=== PATIENT | female | born 1995 | race Two or more races ===

== ENCOUNTER 2024-08-08 01:45 | Inpatient (IN) | payer MEDICAID, SELFPAY ==
[2024-08-08] VITALS (26 sets, daily range): BP systolic 81–165; BP diastolic 52–93; PULSE 66–114; RESP 14–18; TEMP 36.4–37.7; O2SAT 95–107; BMI 33.7
[2024-08-08] MEDS: RINGERS LACTATED 1000 ML 1,000 ML 100 ML IV (02:05)
[2024-08-08] MEDS: ceFAZolin/D5W 2 GM IV 2 GM/100 ML BAG IV (02:16)
[2024-08-08 02:17] LABS: Basophils % (Auto) 0 % (0-2.5); Eosinophils % (Auto) 0 % (0-10); Hematocrit 37.1 % (36.0-46.0); Hemoglobin 12.3 g/dL (12.0-16.0); Immature Granulocytes % (Auto) 0 % (0-0); Immature Granulocytes Auto 0.04 Thou/mm3 (0.00-0.00); Lymphocytes # (Auto) 3.1 Thou/mm3 (1.0-4.8); Lymphocytes % (Auto) 31 % (10-50); Mean Corpuscular HGB Conc 33.2 g/dl (31.0-37.0); Mean Corpuscular Hemoglobin 24.8 pg (25.0-35.0); Mean Corpuscular Volume 75 fL (80-100); Monocytes # (Auto) 0.6 Thou/mm3 (0.0-0.8); Monocytes % (Auto) 6 % (0-12); Neutrophils # (Auto) 6.3 Thou/mm3 (1.8-7.7); Neutrophils % (Auto) 62 % (37-80); Nucleated Red Blood Cell % 0 /100 WBC (0); Platelet Count 244 Thou/mm3 (140-440); RDW Standard Deviation 42.4 fL (36.4-46.3); Red Blood Count 4.96 Miln/mm3 (4.00-5.20); White Blood Count 10.2 Thou/mm3 (3.6-11.0)
[2024-08-08 02:33] LABS: Fibrinogen 478 mg/dL (175-375)
--- NOTE | 2024-08-08 02:35 | XR_ITS ---
Examination: Abdomen AP single view Technique: AP portable supine abdomen, single view Exam date and time: August 08, 2024 at 0239 hrs. Indications:: Instrument miscount Findings: Linear foreign body projects over the right pelvic rami Nonobstructive bowel gas pattern The osseous structures are intact Impression: Positive for curvilinear foreign body Please see the teleradiology report at 0612 ET
[2024-08-08 02:36] LABS: Alanine Aminotransferase 12 U/L (10-49); Albumin, Serum 4.3 gm/dL (3.5-5.0); Albumin/Globulin Ratio 1.5 (1.2-2.2); Alkaline Phosphatase 189 U/L (46-116); Anion Gap 16 (7-16); Aspartate Amino Transferase 12 U/L (0-34); BUN/Creatinine Ratio 22 Ratio (12-20); Bilirubin,Total 0.5 mg/dL (0.3-1.2); Blood Urea Nitrogen 11 mg/dL (9-23); Calcium 9.6 mg/dL (8.3-10.6); Calcium (Corrected) 9.6 mg/dL (8.5-10.1); Carbon Dioxide 15.9 mMol/L (20.0-31.0); Chloride 104 mMol/L (98-107); Creatinine (Component) 0.5 mg/dL (0.6-1.3); Estimated Creatinine Clearance 184.4 mL/min (>60); Globulin 2.8 gm/dL (2.3-3.5); Glucose 97 mg/dL (74-106); Osmolality,Calculated 271 (275-295); Potassium 3.3 mMol/L (3.4-5.1); Sodium 136 mMol/L (136-145); Total Protein 7.1 gm/dL (5.7-8.2); Uric Acid 5.1 mg/dL (3.1-7.8); eGFR > 60 See Note
[2024-08-08 02:51] LABS: Hepatitis B Surface Antigen Non Reactive (Non React); Rubella, IgG Antibody Reactive (Immune)
[2024-08-08 02:55] LABS: Syphilis Nonreactive (Nonreactive)
--- NOTE | 2024-08-08 03:44 | PD.LDHP ---
Documentation for date of: 08/08/24 OB Labor/Induct. HPI History of Present Illness : 4 Term pregnancies: 3 History of sections: Yes (2013) History of present illness: Patient is a 28-year-old with a last menstrual period of mid November and a due date according to the patient of August 08, 2024. She has been followed in [facility]. She is up previous x 1 with 3 successful 's. She presents to this facility in active labor at 8 cm expecting a . Even though she was advanced dilation the hospital policy is to deny VBACs.. Labor began patient states that labor began approximately 12:30 in the afternoon the informed of this and consent was obtained for repeat section . ROS noncontributory past medical history noncontributory review of systems noncontributory Surgical history at first delivery with 3 successful 's following. weight of children ranged between 7 pounds 2 to 7 pounds 3 ounces History of Lasix surgery potassium low at 3.3 chloride 104 sodium 136 CO2 15.9 ificant laboratory H&H 12.3 37.1 uric acid 5.1 Urine 3+ blood O+ blood antibody screen negative Rubella immune physical exam HEENT PERRLA EOM intact he lungs clear art regular rate and rhythm f cervix dilated to 8 cm 0 sta 90% effacement fundal height 36 cm n quadriceps euro cranial nerves II through XII grossly intact +2 symmetrical biceps quadriceps. Peripheral pulses symmetrical trace pretibial edema Labs Labs: Positive: Rubella Titre, Negative: Hepatitis B and Unknown: RPR and Group Beta Strep Past Medical History Surgical History SURGICAL: Positive Section (2013) Meds Home Medications and Allergies Allergies Allergy/AdvReac Type Severity Reaction Status Date / Time No Known Allergies Allergy Verified 04/28/23 21:32 OB Exam Physical Exam Vital signs: Pulse BP 93 165/93 H 08/08/24 01:56 08/08/24 01:56 OB Results Labs 08/08/24 02:00 08/08/24 02:00 Labs: Short CBC 08/08/24 Range/Units 02:00 WBC 10.2 (3.6-11.0) Thou/mm3 Hgb 12.3 (12.0-16.0) g/dL Hct 37.1 (36.0-46.0) % Plt Count 244 (140-440) Thou/mm3 BMP 08/08/24 02:00 Sodium 136 Potassium 3.3 L Chloride 104 Carbon Dioxide 15.9 L BUN 11 Creatinine 0.5 L Glucose 97 Calcium 9.6 Liver Function 08/08/24 Range/Units 02:00 Total Bilirubin 0.5 (0.3-1.2) mg/dL AST 12 (0-34) U/L ALT 12 (10-49) U/L Alkaline Phosphatase 189 H (46-116) U/L Albumin 4.3 (3.5-5.0) gm/dL OB Assessment & Plan Additional Plan Additional Plan Comment: Repeat low-transverse section as hospital does not perform 's
--- NOTE | 2024-08-08 03:57 | ESOP_ITS ---
Operative Note - BURRER MACHINE Procedure Date of procedure: 08/08/24 Procedure Performed: Repeat low-transverse section Indication: Prior section in labor Pre-Op diagnosis: Prior section in labor Procedure description: General anesthesia Findings: 300 cc estimated blood loss Narrative: Male grams score 8/9 weight 3335 Diagnosis Problem List Completed Was Problem List Reviewed/Reconciled?: Yes
--- NOTE | 2024-08-08 03:59 | PD.EVENT ---
Documentation for date of: 08/08/24 Event Note Event Note: Because of the patient's rapid progression and previous section it was decided by anesthesia to perform a general anesthesia. The patient a sharp scalpel was used to incise through the skin and the subcutaneous tissue. Once the subcutaneous tissue had been opened electrocauterization was employed to continue the incision to the fascial layer. The fascia was opened briefly midline and carried laterally in both directions by Call scissors .was prepped and draped in usual fashion and following this a low transverse incision was placed under the previous scar at the level of the symphysis pubis. The fascia was densely adherent with multiple dense scar tissue making it difficult to open up .Call scissors were employed to assist in the dissection of upper dissection of the underlying rectus muscle. A bladder flap was developed by Metzenbaum scissors and pushed off the lower uterine segment. A sharp scalpel was used to open up the uterus followed by blunt finger dissection laterally in both directions. A hand was placed in the lower aspect of the uterus and fundal pressure applied. The vertex was. unable to be easily delivered at which time a vacuum was placed. Difficulty in the use of the vacuum began w pressure was unable to be obtained. A instructions were given for the application of suction including how to maintain pressure in the green zone a successful vacuum extraction occurred. a living male infant with of 8 9 weight 3335 grams. Cord blood was obtained uterus exteriorized Uterus wiped free of clots and debris An extension towards the cervix was seen which was closed with 0 Vicryl 2 layers 9of o vicryl , seconding imbricating the first was used. A needle hole a correct sponge needle and instrument count was noticed near the right mesosalpinx near the tube. This required 4-0 Vicryl to be used in [id number] fashion to obtain hemostasis. A small ooze was noted in the right corner of the uterus and a mhyixq-dn-afjog of 0 Vicryl was used to secure this location. Surgicel powder was placed also. A correct sponge and needle and instrument count was attempted but could not be verified as no preoperative count was obtained due to the emergent nature of the surgery. A flatplate of the abdomen was obtained and digitally visualized in the OR prior to closure no needle instruments or sponges were seen though the pending teleradiology is not yet available. Because of the difficulty in delivering the a small malar incision and the rectus muscle was placed at the time of delivery and this was repaired with 2 interrupted 0 Vicryl sutures. The fascia was closed by continuous suture of 0 Vicryl Subcutaneous tissue reapproximated by 3-0 plain Subcuticular stitch of 4-0 Monocryl was used to close the incision Estimated blood loss 300 cc
[2024-08-08] MEDS: OXYTOCIN in NS 20 units 20 UNIT/1,000 ML BAG 125 UNIT IV (04:53)
[2024-08-08 05:22] LABS: HIV (1&2) Antibody Rapid Non-Reactive
[2024-08-08 06:03] LABS: Anion Gap 10 (7-16); BUN/Creatinine Ratio 22 Ratio (12-20); Blood Urea Nitrogen 11 mg/dL (9-23); Calcium 8.5 mg/dL (8.3-10.6); Carbon Dioxide 22.4 mMol/L (20.0-31.0); Chloride 105 mMol/L (98-107); Creatinine (Component) 0.5 mg/dL (0.6-1.3); Estimated Creatinine Clearance 184.4 mL/min (>60); Glucose 108 mg/dL (74-106); Osmolality,Calculated 274 (275-295); Sodium 137 mMol/L (136-145); eGFR > 60 See Note
[2024-08-08 06:15] LABS: Syphilis Nonreactive (Nonreactive)
[2024-08-08] MEDS: KETOROLAC INJ 30 MG/ML VIAL IVP ×2 (07:15→14:37)
--- NOTE | 2024-08-08 09:17 | PD.LDPPPRG ---
Subjective Subjective Interval history: nearly 6 hpours post up. Comfortable in bes Exam Vital Signs Temp Pulse Resp BP Pulse Ox O2 Del Method 97.9 F 84 18 119/60 98 Room Air 08/08/24 06:00 08/08/24 06:00 08/08/24 06:00 08/08/24 06:00 08/08/24 06:00 08/08/24 06:00 Routine Respiratory Exam Comments: lungs clear Routine Cardiovascular Exam Comments: rrr Routine Abdominal Exam Comments: U/2 firm Objective Labs 08/08/24 02:00 08/08/24 04:55 Labs: Laboratory Results - last 24 hr 08/08/24 08/08/24 08/08/24 02:00 02:00 04:55 WBC 10.2 RBC 4.96 Hgb 12.3 Hct 37.1 MCV 75 L MCH 24.8 L MCHC 33.2 RDW Std Deviation 42.4 Plt Count 244 Neut % (Auto) 62 Lymph % (Auto) 31 [place] % (Auto) 6 Eos % (Auto) 0 Baso % (Auto) 0 Neut # (Auto) 6.3 Lymph # (Auto) 3.1 [place] # (Auto) 0.6 Eos # (Auto) 0.0 Baso # (Auto) 0.0 Immature Gran # (Auto) 0.04 H Absolute Nucleated RBC 0.00 Immature Gran % 0 Nucleated RBC % 0 Fibrinogen 478 H Sodium 136 137 Potassium 3.3 L 4.0 D Chloride 104 105 Carbon Dioxide 15.9 L 22.4 Anion Gap 16 10 BUN 11 11 Creatinine 0.5 L 0.5 L Estim Creat Clear Calc 184.4 184.4 eGFR > 60 > 60 BUN/Creatinine Ratio 22 H 22 H Glucose 97 108 H Calculated Osmolality 271 L 274 L Uric Acid 5.1 Calcium 9.6 8.5 Corrected Calcium 9.6 Total Bilirubin 0.5 AST 12 ALT 12 Alkaline Phosphatase 189 H Total Protein 7.1 Albumin 4.3 Globulin 2.8 Albumin/Globulin Ratio 1.5 Syphilis Serology Nonreactive Nonreactive Hep Bs Antigen Non Reactive HIV 1&2 Antibody Rapid Non-Reactive Rubella IgG Antibody Reactive (Immune) Blood Type O Positive Antibody Screen NEGATIVE Blood Bank Wristband ID Yes Assessment & Plan Plan Comment Plan Comment: continue pp management Time Spent With Patient Time: Total time spent is greater than 50% in coordination of care (as documented) at patient's floor/unit and/or counseling patient:
[2024-08-08 10:49] LABS: Amphetamine/Metham Scrn,Ur OB Negative (Negative); Benzoylecgonine Screen, Ur OB Negative (Negative); Opiate Screen,Urine OB Positive (Negative); THC Screen,Urine OB Negative (Negative)
[2024-08-08 10:50] LABS: Opiates U Confirm* See Sep Rpt
--- NOTE | 2024-08-08 16:13 | ESPR_ITS ---
Subjective Subjective Interval history: By nursing staff of the patient having a sudden loss of consciousness while removing the Jaffe catheter. Patient describes the onset as sudden with no warning. Patient denies any pain. Patient denies any vaginal bleeding. Patient states she does have gas and gas pains also radiating up to the right shoulder at times and this may have been occurring at the time of the fainting spell Exam Vital Signs Temp Pulse Resp BP Pulse Ox O2 Del Method 98.8 F 95 16 96/60 98 Room Air 08/08/24 11:40 08/08/24 11:40 08/08/24 11:40 08/08/24 11:40 08/08/24 11:40 08/08/24 11:40 Narrative Exam Upon proceeding to the patient's bedside and examination of the patient revealed the following. The patient was alert and in no acute distress. The abdomen was soft nontender though the patient did indicate minimal tenderness in the inguinal areas. There are active bowel sounds. The heart had regular rate and rhythm. The lungs were clear reflexes were normal. Blood pressure at the time of the incident was according to the nursing staff 84/52 and upon laying down it was 109/71 respirations were 15 pulse was 92. There was no rebound tenderness in the patient's abdomen which remained soft throughout the examination. Objective Labs 08/08/24 02:00 08/08/24 04:55 Labs: Laboratory Results - last 24 hr 08/08/24 08/08/24 08/08/24 02:00 02:00 04:55 WBC 10.2 RBC 4.96 Hgb 12.3 Hct 37.1 MCV 75 L MCH 24.8 L MCHC 33.2 RDW Std Deviation 42.4 Plt Count 244 Neut % (Auto) 62 Lymph % (Auto) 31 [place] % (Auto) 6 Eos % (Auto) 0 Baso % (Auto) 0 Neut # (Auto) 6.3 Lymph # (Auto) 3.1 [place] # (Auto) 0.6 Eos # (Auto) 0.0 Baso # (Auto) 0.0 Immature Gran # (Auto) 0.04 H Absolute Nucleated RBC 0.00 Immature Gran % 0 Nucleated RBC % 0 Fibrinogen 478 H Sodium 136 137 Potassium 3.3 L 4.0 D Chloride 104 105 Carbon Dioxide 15.9 L 22.4 Anion Gap 16 10 BUN 11 11 Creatinine 0.5 L 0.5 L Estim Creat Clear Calc 184.4 184.4 eGFR > 60 > 60 BUN/Creatinine Ratio 22 H 22 H Glucose 97 108 H Calculated Osmolality 271 L 274 L Uric Acid 5.1 Calcium 9.6 8.5 Corrected Calcium 9.6 Total Bilirubin 0.5 AST 12 ALT 12 Alkaline Phosphatase 189 H Total Protein 7.1 Albumin 4.3 Globulin 2.8 Albumin/Globulin Ratio 1.5 Urine Opiates Screen U Amphetamin/Meth Scrn U Cocaine Metab Screen U Marijuana (THC) Screen Syphilis Serology Nonreactive Nonreactive Hep Bs Antigen Non Reactive HIV 1&2 Antibody Rapid Non-Reactive Rubella IgG Antibody Reactive (Immune) Blood Type O Positive Antibody Screen NEGATIVE Blood Bank Wristband ID Yes 08/08/24 09:54 WBC RBC Hgb Hct MCV MCH MCHC RDW Std Deviation Plt Count Neut % (Auto) Lymph % (Auto) [place] % (Auto) Eos % (Auto) Baso % (Auto) Neut # (Auto) Lymph # (Auto) [place] # (Auto) Eos # (Auto) Baso # (Auto) Immature Gran # (Auto) Absolute Nucleated RBC Immature Gran % Nucleated RBC % Fibrinogen Sodium Potassium Chloride Carbon Dioxide Anion Gap BUN Creatinine Estim Creat Clear Calc eGFR BUN/Creatinine Ratio Glucose Calculated Osmolality Uric Acid Calcium Corrected Calcium Total Bilirubin AST ALT Alkaline Phosphatase Total Protein Albumin Globulin Albumin/Globulin Ratio Urine Opiates Screen Positive A U Amphetamin/Meth Scrn Negative U Cocaine Metab Screen Negative U Marijuana (THC) Screen Negative Syphilis Serology Hep Bs Antigen HIV 1&2 Antibody Rapid Rubella IgG Antibody Blood Type Antibody Screen Blood Bank Wristband ID Impressions Impression: Pending to the laboratory which was ordered at the time of the incident including a stat CBC a CHEM 20 and evaluation of electrolytes this is believed to both likely be a vessel vagal response upon the patient. Once additional laboratories are obtained patient will be again evaluated for orthostatic blood pressure changes Assessment & Plan Time Spent With Patient Time: Total time spent is greater than 50% in coordination of care (as documented) at patient's floor/unit and/or counseling patient:
[2024-08-08 16:17] LABS: Basophils % (Auto) 0 % (0-2.5); Eosinophils % (Auto) 0 % (0-10); Hematocrit 21.4 % (36.0-46.0); Immature Granulocytes % (Auto) 0 % (0-0); Immature Granulocytes Auto 0.03 Thou/mm3 (0.00-0.00); Lymphocytes % (Auto) 7 % (10-50); Mean Corpuscular HGB Conc 33.2 g/dl (31.0-37.0); Mean Corpuscular Hemoglobin 25.3 pg (25.0-35.0); Mean Corpuscular Volume 76 fL (80-100); Monocytes # (Auto) 1.4 Thou/mm3 (0.0-0.8); Monocytes % (Auto) 11 % (0-12); Neutrophils # (Auto) 10.7 Thou/mm3 (1.8-7.7); Neutrophils % (Auto) 82 % (37-80); Nucleated Red Blood Cell % 0 /100 WBC (0); Platelet Count 224 Thou/mm3 (140-440); RDW Standard Deviation 43.8 fL (36.4-46.3); Red Blood Count 2.81 Miln/mm3 (4.00-5.20); White Blood Count 13.1 Thou/mm3 (3.6-11.0)
[2024-08-08 16:22] LABS: Hemoglobin 7.1 g/dL (12.0-16.0)
[2024-08-08 16:39] LABS: Alanine Aminotransferase 12 U/L (10-49); Albumin, Serum 3.4 gm/dL (3.5-5.0); Albumin/Globulin Ratio 1.7 (1.2-2.2); Alkaline Phosphatase 125 U/L (46-116); Anion Gap 12 (7-16); Aspartate Amino Transferase 25 U/L (0-34); BUN/Creatinine Ratio 22 Ratio (12-20); Bilirubin,Total 0.5 mg/dL (0.3-1.2); Blood Urea Nitrogen 13 mg/dL (9-23); Calcium 8.5 mg/dL (8.3-10.6); Carbon Dioxide 19.6 mMol/L (20.0-31.0); Chloride 106 mMol/L (98-107); Creatinine (Component) 0.6 mg/dL (0.6-1.3); Estimated Creatinine Clearance 153.7 mL/min (>60); Glucose 111 mg/dL (74-106); Osmolality,Calculated 276 (275-295); Potassium 4.2 mMol/L (3.4-5.1); Sodium 138 mMol/L (136-145); Total Protein 5.4 gm/dL (5.7-8.2); eGFR > 60 See Note
--- NOTE | 2024-08-08 20:14 | ESPR_ITS ---
Subjective Subjective Interval history: Nursing reported patient felt dizzy with sitting. Feeling flushes. Will transfuse one unit. Will decide second unit depending on patient symptoms Wiull repeat H/H 6 hours after first unit in. Exam Vital Signs Temp Pulse Resp BP Pulse Ox O2 Del Method 99.1 F 114 H 16 131/85 H 100 Room Air 08/08/24 20:03 08/08/24 20:03 08/08/24 20:03 08/08/24 20:03 08/08/24 20:03 08/08/24 16:13 Objective Labs 08/08/24 16:03 08/08/24 16:03 Labs: Laboratory Results - last 24 hr 08/08/24 08/08/24 08/08/24 02:00 02:00 04:55 WBC 10.2 RBC 4.96 Hgb 12.3 Hct 37.1 MCV 75 L MCH 24.8 L MCHC 33.2 RDW Std Deviation 42.4 Plt Count 244 Neut % (Auto) 62 Lymph % (Auto) 31 [place] % (Auto) 6 Eos % (Auto) 0 Baso % (Auto) 0 Neut # (Auto) 6.3 Lymph # (Auto) 3.1 [place] # (Auto) 0.6 Eos # (Auto) 0.0 Baso # (Auto) 0.0 Immature Gran # (Auto) 0.04 H Absolute Nucleated RBC 0.00 Immature Gran % 0 Nucleated RBC % 0 Fibrinogen 478 H Sodium 136 137 Potassium 3.3 L 4.0 D Chloride 104 105 Carbon Dioxide 15.9 L 22.4 Anion Gap 16 10 BUN 11 11 Creatinine 0.5 L 0.5 L Estim Creat Clear Calc 184.4 184.4 eGFR > 60 > 60 BUN/Creatinine Ratio 22 H 22 H Glucose 97 108 H Calculated Osmolality 271 L 274 L Uric Acid 5.1 Calcium 9.6 8.5 Corrected Calcium 9.6 Total Bilirubin 0.5 AST 12 ALT 12 Alkaline Phosphatase 189 H Total Protein 7.1 Albumin 4.3 Globulin 2.8 Albumin/Globulin Ratio 1.5 Urine Opiates Screen U Amphetamin/Meth Scrn U Cocaine Metab Screen U Marijuana (THC) Screen Syphilis Serology Nonreactive Nonreactive Hep Bs Antigen Non Reactive HIV 1&2 Antibody Rapid Non-Reactive Rubella IgG Antibody Reactive (Immune) Blood Type O Positive Antibody Screen NEGATIVE Crossmatch See Detail Blood Bank Wristband ID Yes 08/08/24 08/08/24 09:54 16:03 WBC 13.1 H RBC 2.81 L Hgb 7.1 L D Hct 21.4 L* D MCV 76 L MCH 25.3 MCHC 33.2 RDW Std Deviation 43.8 Plt Count 224 Neut % (Auto) 82 H Lymph % (Auto) 7 L [place] % (Auto) 11 Eos % (Auto) 0 Baso % (Auto) 0 Neut # (Auto) 10.7 H Lymph # (Auto) 1.0 [place] # (Auto) 1.4 H Eos # (Auto) 0.0 Baso # (Auto) 0.0 Immature Gran # (Auto) 0.03 H Absolute Nucleated RBC 0.00 Immature Gran % 0 Nucleated RBC % 0 Fibrinogen Sodium 138 Potassium 4.2 Chloride 106 Carbon Dioxide 19.6 L Anion Gap 12 BUN 13 Creatinine 0.6 Estim Creat Clear Calc 153.7 eGFR > 60 BUN/Creatinine Ratio 22 H Glucose 111 H Calculated Osmolality 276 Uric Acid Calcium 8.5 Corrected Calcium 9.0 Total Bilirubin 0.5 AST 25 ALT 12 Alkaline Phosphatase 125 H D Total Protein 5.4 L Albumin 3.4 L D Globulin 2.0 L Albumin/Globulin Ratio 1.7 Urine Opiates Screen Positive A U Amphetamin/Meth Scrn Negative U Cocaine Metab Screen Negative U Marijuana (THC) Screen Negative Syphilis Serology Hep Bs Antigen HIV 1&2 Antibody Rapid Rubella IgG Antibody Blood Type Antibody Screen Crossmatch Blood Bank Wristband ID Assessment & Plan Time Spent With Patient Time: Total time spent is greater than 50% in coordination of care (as documented) at patient's floor/unit and/or counseling patient:
--- NOTE | 2024-08-08 22:17 | PC.NURSE ---
Blood transfusion complete. VS stable, no complaints of any pain or discomfort, no signs of distress.
--- NOTE | 2024-08-08 22:35 | PC.NURSE ---
Assisted patient to the toilet, urinated with an output of 280 ml.
[2024-08-09] VITALS (9 sets, daily range): BP systolic 125–159; BP diastolic 77–97; PULSE 64–108; RESP 16–20; TEMP 36.7–37.1; O2SAT 98–99
[2024-08-09 02:49] LABS: Basophils % (Auto) 0 % (0-2.5); Eosinophils % (Auto) 0 % (0-10); Hematocrit 23.5 % (36.0-46.0); Immature Granulocytes % (Auto) 0 % (0-0); Immature Granulocytes Auto 0.03 Thou/mm3 (0.00-0.00); Lymphocytes # (Auto) 1.2 Thou/mm3 (1.0-4.8); Lymphocytes % (Auto) 11 % (10-50); Mean Corpuscular HGB Conc 32.8 g/dl (31.0-37.0); Mean Corpuscular Hemoglobin 25.6 pg (25.0-35.0); Mean Corpuscular Volume 78 fL (80-100); Monocytes # (Auto) 0.9 Thou/mm3 (0.0-0.8); Monocytes % (Auto) 9 % (0-12); Neutrophils # (Auto) 8.4 Thou/mm3 (1.8-7.7); Neutrophils % (Auto) 80 % (37-80); Nucleated Red Blood Cell % 0 /100 WBC (0); Platelet Count 208 Thou/mm3 (140-440); RDW Standard Deviation 44.6 fL (36.4-46.3); Red Blood Count 3.01 Miln/mm3 (4.00-5.20); White Blood Count 10.5 Thou/mm3 (3.6-11.0)
[2024-08-09 02:53] LABS: Hemoglobin 7.7 g/dL (12.0-16.0)
[2024-08-09] MEDS: ACETAMINOPHEN 325 MG TABLET 650 MG PO ×2 (04:01→13:07)
[2024-08-09] MEDS: SIMETHICONE 80 MG CHEW PO ×2 (04:57→13:07)
--- NOTE | 2024-08-09 08:19 | PD.LDPPPRG ---
Subjective Subjective Interval history: Patient is postop day #1 repeat in labor. Patient delivered to 08/08/24 at 2:00 in the morning so she is about 32 hours after her . Her predelivery hemoglobin was 12 it dropped to 7.1 and she got 1 unit of blood and today her hemoglobin is 7.7 the plan is to transfuse 1 more unit. Patient is doing well she does feel abdominal distention and is barely passing flatus. She did tolerate a general diet for breakfast. She denies heavy vaginal bleeding or shortness of breath or lightheadedness. The father the baby is at bedside. Exam Vital Signs Temp Pulse Resp BP Pulse Ox O2 Del Method 98.4 F 106 H 16 132/92 H 98 Room Air 08/09/24 03:54 08/09/24 03:54 08/09/24 03:54 08/09/24 03:54 08/09/24 03:54 08/09/24 03:54 Narrative Exam Patient is alert cooperative resting comfortably in bed Constitutional Constitutional: no acute distress Routine Abdominal Exam Abdominal: Present soft, distended and surgical scars (Her dressing is clean dry and intact. It will be removed later today.) Comments: Abdomen is distended and tympanitic. Difficult to feel fundus. Routine Extremities Exam Extremities: Present full ROM Routine Skin Exam Skin: Present intact, dry and warm Routine Psychiatric Exam Psychiatric: Present normal affect and normal thought process Objective Labs 08/09/24 02:00 08/08/24 16:03 Labs: Laboratory Results - last 24 hr 08/08/24 08/08/24 08/08/24 02:00 09:54 16:03 WBC 13.1 H RBC 2.81 L Hgb 7.1 L D Hct 21.4 L* D MCV 76 L MCH 25.3 MCHC 33.2 RDW Std Deviation 43.8 Plt Count 224 Neut % (Auto) 82 H Lymph % (Auto) 7 L [place] % (Auto) 11 Eos % (Auto) 0 Baso % (Auto) 0 Neut # (Auto) 10.7 H Lymph # (Auto) 1.0 [place] # (Auto) 1.4 H Eos # (Auto) 0.0 Baso # (Auto) 0.0 Immature Gran # (Auto) 0.03 H Absolute Nucleated RBC 0.00 Immature Gran % 0 Nucleated RBC % 0 Sodium 138 Potassium 4.2 Chloride 106 Carbon Dioxide 19.6 L Anion Gap 12 BUN 13 Creatinine 0.6 Estim Creat Clear Calc 153.7 eGFR > 60 BUN/Creatinine Ratio 22 H Glucose 111 H Calculated Osmolality 276 Calcium 8.5 Corrected Calcium 9.0 Total Bilirubin 0.5 AST 25 ALT 12 Alkaline Phosphatase 125 H D Total Protein 5.4 L Albumin 3.4 L D Globulin 2.0 L Albumin/Globulin Ratio 1.7 Urine Opiates Screen Positive A U Amphetamin/Meth Scrn Negative U Cocaine Metab Screen Negative U Marijuana (THC) Screen Negative Blood Type O Positive Antibody Screen NEGATIVE Crossmatch See Detail Blood Bank Wristband ID Yes 08/09/24 02:00 WBC 10.5 RBC 3.01 L Hgb 7.7 L Hct 23.5 L MCV 78 L MCH 25.6 MCHC 32.8 RDW Std Deviation 44.6 Plt Count 208 Neut % (Auto) 80 Lymph % (Auto) 11 [place] % (Auto) 9 Eos % (Auto) 0 Baso % (Auto) 0 Neut # (Auto) 8.4 H Lymph # (Auto) 1.2 [place] # (Auto) 0.9 H Eos # (Auto) 0.0 Baso # (Auto) 0.0 Immature Gran # (Auto) 0.03 H Absolute Nucleated RBC 0.00 Immature Gran % 0 Nucleated RBC % 0 Sodium Potassium Chloride Carbon Dioxide Anion Gap BUN Creatinine Estim Creat Clear Calc eGFR BUN/Creatinine Ratio Glucose Calculated Osmolality Calcium Corrected Calcium Total Bilirubin AST ALT Alkaline Phosphatase Total Protein Albumin Globulin Albumin/Globulin Ratio Urine Opiates Screen U Amphetamin/Meth Scrn U Cocaine Metab Screen U Marijuana (THC) Screen Blood Type Antibody Screen Crossmatch Blood Bank Wristband ID Impressions Impression: Predelivery hemoglobin 12 postdelivery hemoglobin 7.1. After 1 unit is only 7.7. Plan to transfuse 1 more unit of packed red blood cells. Assessment & Plan Problem List (1) Previous delivery affecting , delivered: Status: Acute (2) Acute postoperative anemia due to greater than expected blood loss: Problem details: Patient is status post 1 unit packed red blood cells postop. Ordered a second unit packed red blood cells Status: Acute Plan Comment Plan Comment: Postop day #1 status post primary with acute blood loss. Transfuse 1 more unit of blood. Keep 2 units keep to IV lines in place. Order Dulcolax suppository now for abdominal distention. Encourage ambulation after second unit of blood. Recheck hemoglobin in morning. Time Spent With Patient Time: Total time spent is greater than 50% in coordination of care (as documented) at patient's floor/unit and/or counseling patient: Time with patient: less than 15 minutes
[2024-08-09] MEDS: bisacodyL 10 MG SUPP PR (10:28)
[2024-08-09] MEDS: Milk Of Magnesia Susp 30 ML UDC PO (13:07)
--- NOTE | 2024-08-09 13:10 | PC.NURSE ---
1300: Dr. Boyce on the unit: RN reported no relief from the suppository. RN will administer prn gas relief medication. RN also reported patient having blood pressures in the 140s/80s. vorb to put patient on clear liquid diet as she was put under general anesthesia.
[2024-08-09 15:44] LABS: Basophils % (Auto) 0 % (0-2.5); Eosinophils % (Auto) 0 % (0-10); Hematocrit 27.5 % (36.0-46.0); Hemoglobin 9.2 g/dL (12.0-16.0); Immature Granulocytes % (Auto) 1 % (0-0); Immature Granulocytes Auto 0.09 Thou/mm3 (0.00-0.00); Lymphocytes # (Auto) 1.7 Thou/mm3 (1.0-4.8); Lymphocytes % (Auto) 12 % (10-50); Mean Corpuscular HGB Conc 33.5 g/dl (31.0-37.0); Mean Corpuscular Hemoglobin 26.1 pg (25.0-35.0); Mean Corpuscular Volume 78 fL (80-100); Monocytes # (Auto) 1.1 Thou/mm3 (0.0-0.8); Monocytes % (Auto) 8 % (0-12); Neutrophils % (Auto) 79 % (37-80); Nucleated Red Blood Cell % 0 /100 WBC (0); Platelet Count 249 Thou/mm3 (140-440); Red Blood Count 3.53 Miln/mm3 (4.00-5.20); White Blood Count 13.9 Thou/mm3 (3.6-11.0)
[2024-08-09] MEDS: KETOROLAC INJ 30 MG/ML VIAL IVP (16:39)
[2024-08-09] MEDS: PANTOPRAZOLE INJ 40 MG VIAL IV (16:47)
[2024-08-10] MEDS: ACETAMINOPHEN 325 MG TABLET 650 MG PO ×2 (03:14→09:35)
[2024-08-10 04:15] VITALS: BP 126/84; PULSE 85; RESP 17; TEMP 36.7; O2SAT 98
[2024-08-10] MEDS: IBUPROFEN TAB 400 MG TABLET 800 MG PO (04:33)
[2024-08-10] MEDS: SIMETHICONE 80 MG CHEW PO ×2 (04:36→09:35)
[2024-08-10 05:21] LABS: Basophils % (Auto) 0 % (0-2.5); Eosinophils % (Auto) 0 % (0-10); Lymphocytes # (Auto) 1.4 Thou/mm3 (1.0-4.8); Lymphocytes % (Auto) 12 % (10-50); Monocytes % (Auto) 8 % (0-12); Neutrophils % (Auto) 79 % (37-80); Nucleated Red Blood Cell % 0 /100 WBC (0)
[2024-08-10 05:22] LABS: Immature Granulocytes % (Auto) 0 % (0-0); Immature Granulocytes Auto 0.05 Thou/mm3 (0.00-0.00); Mean Corpuscular HGB Conc 32.8 g/dl (31.0-37.0); Mean Corpuscular Hemoglobin 25.9 pg (25.0-35.0); Mean Corpuscular Volume 79 fL (80-100); Monocytes # (Auto) 0.9 Thou/mm3 (0.0-0.8); Neutrophils # (Auto) 9.1 Thou/mm3 (1.8-7.7); Platelet Count 217 Thou/mm3 (140-440); RDW Standard Deviation 48.3 fL (36.4-46.3); Red Blood Count 3.16 Miln/mm3 (4.00-5.20); White Blood Count 11.5 Thou/mm3 (3.6-11.0)
[2024-08-10 05:36] LABS: Hemoglobin 8.2 g/dL (12.0-16.0)
--- NOTE | 2024-08-10 06:53 | PD.LDPPPRG ---
Subjective Subjective Interval history: Patient has passed minimal flatus since yesterday still distended. 1 hard small bowel movement yesterday morning. Not hungry. Tolerating clears with no vomiting. Exam Vital Signs Temp Pulse Resp BP Pulse Ox O2 Del Method 98.1 F 85 17 126/84 98 Room Air 08/10/24 04:15 08/10/24 04:15 08/10/24 04:15 08/10/24 04:15 08/10/24 04:15 08/10/24 04:15 Narrative Exam Abdomen distended. Patient uncomfortable with gas. Burping but not passing a lot of flatus. Routine Abdominal Exam Abdominal: Present distended Comments: Abdomen very distended and tympanitic. Objective Labs 08/10/24 04:50 08/08/24 16:03 Labs: Laboratory Results - last 24 hr 08/08/24 08/09/24 08/10/24 02:00 15:28 04:50 WBC 13.9 H 11.5 H RBC 3.53 L 3.16 L Hgb 9.2 L 8.2 L Hct 27.5 L 25.0 L MCV 78 L 79 L MCH 26.1 25.9 MCHC 33.5 32.8 RDW Std Deviation 48.0 H 48.3 H Plt Count 249 D 217 D Neut % (Auto) 79 79 Lymph % (Auto) 12 12 [place] % (Auto) 8 8 Eos % (Auto) 0 0 Baso % (Auto) 0 0 Neut # (Auto) 11.0 H 9.1 H Lymph # (Auto) 1.7 1.4 [place] # (Auto) 1.1 H 0.9 H Eos # (Auto) 0.0 0.0 Baso # (Auto) 0.0 0.0 Immature Gran # (Auto) 0.09 H 0.05 H Absolute Nucleated RBC 0.00 0.00 Immature Gran % 1 H 0 Nucleated RBC % 0 0 Blood Type O Positive Antibody Screen NEGATIVE Crossmatch See Detail Blood Bank Wristband ID Yes Assessment & Plan Problem List (1) Previous delivery affecting , delivered: Status: Acute (2) Acute postoperative anemia due to greater than expected blood loss: Problem details: Patient is status post 2 units packed red blood cells postop. Status: Acute Assessment and plan: Patient CBC is stable at 8.2. No more blood. Assessment Comment Assessment comment: Probable developing ileus. I will order another suppository continue on clears and encourage ambulation in the hallway. Time Spent With Patient Time: Total time spent is greater than 50% in coordination of care (as documented) at patient's floor/unit and/or counseling patient: Time with patient: less than 15 minutes
[2024-08-10 08:00] VITALS: BP 128/82; PULSE 97; RESP 18; TEMP 36.6; O2SAT 98
[2024-08-10] MEDS: bisacodyL 10 MG SUPP PR (08:10)
--- NOTE | 2024-08-10 08:56 | ESPR_ITS ---
Subjective Subjective Interval history: Patient doing well overall. Pain is controlled. She is ambulating no lightheadedness/dizziness. Voiding spontaneously since loredo was removed, no issues. Tolerating clear liquid diet without nausea/vomiting but minimal appetite. Passing minimal gas- had 1 small firm stool. Has now received 2 suppositories (1 very recently). Feels bloated. No fevers/chills, no CP/SOB. Exam Vital Signs Temp Pulse Resp BP Pulse Ox O2 Del Method 98.1 F 85 17 126/84 98 Room Air 08/10/24 04:15 08/10/24 04:15 08/10/24 04:15 08/10/24 04:15 08/10/24 04:15 08/10/24 04:15 Narrative Exam General: well developed, well nourished, no acute distress, conversant Cardiac: normal heart rate Lungs: breathing without distress Abdomen: soft, post-gravid, appropriately tender to palpation, no rebound or guarding, distension noted, pfannenstiel incision covered by dry/clean/intact prineo bandage. Incision well reapproximated. No erythema, drainage or induration. Fundus firm at u-2cm. Extremities: no pain with palpation of calves, trace edema of BLE Objective Labs 08/10/24 04:50 08/08/24 16:03 Labs: Laboratory Results - last 24 hr 08/08/24 08/09/24 08/10/24 02:00 15:28 04:50 WBC 13.9 H 11.5 H RBC 3.53 L 3.16 L Hgb 9.2 L 8.2 L Hct 27.5 L 25.0 L MCV 78 L 79 L MCH 26.1 25.9 MCHC 33.5 32.8 RDW Std Deviation 48.0 H 48.3 H Plt Count 249 D 217 D Neut % (Auto) 79 79 Lymph % (Auto) 12 12 Rowan % (Auto) 8 8 Eos % (Auto) 0 0 Baso % (Auto) 0 0 Neut # (Auto) 11.0 H 9.1 H Lymph # (Auto) 1.7 1.4 Rowan # (Auto) 1.1 H 0.9 H Eos # (Auto) 0.0 0.0 Baso # (Auto) 0.0 0.0 Immature Gran # (Auto) 0.09 H 0.05 H Absolute Nucleated RBC 0.00 0.00 Immature Gran % 1 H 0 Nucleated RBC % 0 0 Crossmatch See Detail Assessment & Plan Problem List (1) Previous delivery affecting , delivered: Status: Acute Assessment and plan: Patient is a 28yo G5 nowP5 s/p RLTCS under GETA after presenting in labor, on POD 2. She had ebl 300ml per op note, but Hgb decreased from 12.3 to 7.1 and she received 2u pRBCs with appropriate increase in Hgb to now 8.2. Vitals wnl, exam only notable for some abdominal distension related to gas. She has received 2 suppositories (1 very recently) and having no nausea/vomiting, just low appetite. Hemodynamically stable with no evidence of infection. Plan: -Continue routine /post-op care -Discussed importance of ambulation today to try to reduce abdominal distension and get bowels moving. Has had 2 suppositories and plan in place for MOM as well. -Clear liquid diet until passing more gas and distension decreases -motrin 800mg PO Q8hr, norco 5/325mg PO Q6hr prn pain (2) Acute postoperative anemia due to greater than expected blood loss: Problem details: Patient is status post 2 units packed red blood cells postop. Status: Acute Time Spent With Patient Time: Total time spent is greater than 50% in coordination of care (as documented) at patient's floor/unit and/or counseling patient:
[2024-08-10] MEDS: Milk Of Magnesia Susp 30 ML UDC PO (09:35)
[2024-08-10 09:50] LABS: Basophils % (Auto) 0 % (0-2.5); Eosinophils % (Auto) 0 % (0-10); Immature Granulocytes % (Auto) 1 % (0-0); Immature Granulocytes Auto 0.08 Thou/mm3 (0.00-0.00); Lymphocytes # (Auto) 2.1 Thou/mm3 (1.0-4.8); Lymphocytes % (Auto) 16 % (10-50); Mean Corpuscular HGB Conc 32.8 g/dl (31.0-37.0); Mean Corpuscular Hemoglobin 25.8 pg (25.0-35.0); Mean Corpuscular Volume 79 fL (80-100); Monocytes # (Auto) 1.1 Thou/mm3 (0.0-0.8); Monocytes % (Auto) 8 % (0-12); Neutrophils % (Auto) 75 % (37-80); Nucleated Red Blood Cell % 0 /100 WBC (0); Platelet Count 241 Thou/mm3 (140-440); Red Blood Count 3.18 Miln/mm3 (4.00-5.20); White Blood Count 13.3 Thou/mm3 (3.6-11.0)
[2024-08-10 10:08] LABS: Hemoglobin 8.2 g/dL (12.0-16.0)
[2024-08-10 15:33] VITALS: BP 130/85; PULSE 89; RESP 18; TEMP 36.8; O2SAT 100
--- NOTE | 2024-08-10 17:01 | ESDS_ITS ---
DS: Providers Provider Date of admission: 08/08/24 02:00 Primary care physician: Physician No Primary/Family Admitting Provider: Carson Oliveros MD Attending Provider on Admission: Carson Oliveros MD Consults: 08/08/24 04:19 Referral Routine Comment: Attending Provider on DC: Faith Sy MD Discharging Provider: Faith Sy MD DS: Diagnosis Discharge Diagnosis (1) Previous delivery affecting , delivered: Status: Acute (2) Acute postoperative anemia due to greater than expected blood loss: Status: Acute Problem List Completed Was Problem List Reviewed/Reconciled?: Yes Summary/Hosp Course Brief History: Patient is a 28yo G5 nowP5 s/p RLTCS under GETA after presenting in labor, on POD 2. She had ebl 300ml per op note, but Hgb decreased from 12.3 to 7.1 and she received 2u pRBCs with appropriate increase in Hgb to now 8.2. She has had an uncomplicated post-operative course, meeting all milestones and strongly desires discharge home. She had some abdominal distension but never developed an ileus, after 2 suppositories and MOM she was able to have a good BM and tolerating oral intake well with no n/v. She is ambulating without lightheadedness, spontaneously voiding without issue. She has no chest pain or shortness of breath. No fevers or chills. Pain well controlled. Vitals normal, benign exam. Hemodynamically stable with no evidence of infection. Peripartum Data Procedures: Procedures Operation Date: 08/08/24 02:09 Actual Procedure Side Surgeon p in OB Not Applicable Carson Oliveros MD Status at Discharge Functional status at discharge: independent ambulation Overall status at discharge: patient is back to baseline Time Spent with Patient Time attestation: Total time spent providing and/or coordinating discharge services: Exam Vital Signs Temp Pulse Resp BP Pulse Ox O2 Del Method 98.2 F 89 18 130/85 H 100 Room Air 08/10/24 15:33 08/10/24 15:33 08/10/24 15:33 08/10/24 15:33 08/10/24 15:33 08/10/24 15:33 Narrative Exam General: well developed, well nourished, no acute distress, conversant Cardiac: normal heart rate Lungs: breathing without distress Abdomen: soft, post-gravid, non-tender, no rebound or guarding, pfannenstiel incision covered by dry/clean/intact prineo bandage. Incision well reapproximated. No erythema, drainage or induration. Fundus firm at u-2cm. Extremities: no pain with palpation of calves, trace edema of BLE Discharge Plan Plan Patient Disposition: HOME (Self Care) Patient condition on transfer: Stable Prescriptions/Referrals Prescriptions/Med Rec: New ibuprofen 800 mg tablet 800 mg PO Q8HR PRN (Reason: Pain Scale 4-6 (Moderate) 10 Days Qty: 30 0RF hydrocodone-acetaminophen 5-325 mg tablet 1 tab PO Q6H MDD 4 tablets PRN (Reason: pain) Qty: 10 0RF ferrous sulfate 325 mg (65 mg iron) tablet,delayed release (DR/EC) 325 mg PO QDAY Qty: 30 0RF polyethylene glycol 3350 17 gram powder in packet 17 g PO QDAY Qty: 14 0RF Referrals: No Primary/Family,Physician [Primary Care Provider] - Patient/Caregiver Discharge Instructions Discharge Activity: activity as tolerated and other Other Discharge Activity Instructions:: Follow up for incision check in 1 week, call clinic for appointment Vaginal rest and no heavy lifting more than 10 pounds for 6 weeks[address] while taking narcotic. Keep incision clean and dry, do not submerge. Other Discharge Diet Instructions: Regular diet Education Materials: Breast Care After , C Section Dc Print Language: Kinyarwanda Activity Restrictions/Additional Instructions: * Follow up for incision check in 1 week, call clinic for appointment Stand Alone Forms: [employer] Award Info., Patient Portal Info Letter Discharge Order Discharge Orders: Discharge (Routine); Ordered 08/10/24 Ordered By: Faith Sy Planned Discharge Date 08/10/24
== END 2024-08-10 17:53 | disposition home or self-care (01) | DRG 540 ==
LOC: S4SX 02:41 → S4NX 03:44
PROVIDERS: Obstetrics & Gynecology; Admitting Provider Obstetrics & Gynecology; Visit Provider Obstetrics & Gynecology
PROC: 10D00Z1 Extraction of Products of Conception, Low, Open Approach (ICD-10-PCS; CPT 59514; principal; 2024-08-08 02:30)
DX: O34.211 Maternal care for low transverse scar from previous cesarean delivery (principal); Z37.0 Single live birth; O99.02 Anemia complicating childbirth; D50.0 Iron deficiency anemia secondary to blood loss (chronic)
CPT/HCPCS: 36415; 59409; 74018; 80048; 80053; 80307; 84550; 85025; 85384; 86703; 86762; 86780; 86850; 86900; 86901; 86923; 87340; 94762; A4649; J0330; J0689; J1100; J1885; J2250; J2270; J2405; J2470; J2590; J2704; J3010; J3490; J7120; P9016; A9270